=== PATIENT | male | born 1945 | race Caucasian/White ===

== ENCOUNTER → 2018-02-28 | Outpatient (CLI) | payer MEDICARE, MEDICAID | END | disposition home or self-care (01) | LOC: U/S 10:17 | DX: N18.9 Chronic kidney disease, unspecified (principal) | CPT/HCPCS: 76775 ==

== ENCOUNTER 2018-07-26 17:54 | Emergency (ER) | payer MEDICARE, MEDICAID ==
[2018-07-26] MEDS: HYDROmorphONE 1 MG/ML SYG IV (20:47)
[2018-07-26] MEDS: KETOROLAC 15 MG INJ IV (20:47)
[2018-07-26] MEDS: ONDANSETRON 4 MG INJ IV (20:47)
[2018-07-26] MEDS: METHYLPREDNISOLONE 125 MG INJ IV (20:47)
== END 2018-07-26 21:50 | disposition home or self-care (01) ==
LOC: E/R 17:54
DX: M54.41 Lumbago with sciatica, right side (principal); I10 Essential (primary) hypertension; M54.16 Radiculopathy, lumbar region; Z79.82 Long term (current) use of aspirin; Z98.61 Coronary angioplasty status
CPT/HCPCS: 96374; 96375; 99284-25

== ENCOUNTER → 2018-08-04 | Outpatient (CLI) | payer MEDICARE, MEDICAID | END | disposition home or self-care (01) | LOC: RAD 13:21 | DX: N18.9 Chronic kidney disease, unspecified (principal) | CPT/HCPCS: 76775 ==